=== PATIENT | female | born 1985 | race Caucasian/White ===

== ENCOUNTER 2016-08-04 10:14 | Emergency (ER) | payer OTHER ==
[2016-08-04 10:19] VITALS: RESP 16
--- NOTE | 2016-08-04 10:46 | EDPHY ---
H & P Time Seen by Provider: 08/04/16 10:31 HPI/ROS: CHIEF COMPLAINT: Sore throat HISTORY OF PRESENT ILLNESS: The patient is a 31 year old female presenting with sore throat for the past 3 days. Her throat feels swollen and moderately painful. Alleviated with ibuprofen. She has associated mild congestion. The patient has a history of peritonsillar abscess requiring hospitalization and is concerned she may have this again. She denies fever, cough, or difficulty breathing. REVIEW OF SYSTEMS: Aside from elements discussed in the HPI, a comprehensive 10-point review of systems was reviewed and is negative. Past Medical/Surgical History: Paratonsillar abscess, Bipolar disorder. PSH: Tonsillectomy Smoking Status: Never smoked Physical Exam: General Appearance: Alert, non-toxic Eyes: Pupils equal and round, no conjunctival injection ENT, Mouth: Mucous membranes moist. Throat: Pharyngeal erythema without exudate Neck: Normal inspection Respiratory: Lungs are clear to auscultation Cardiovascular: Regular rate and rhythm Neurological: A&O, nonfocal, normal gait Skin: Warm and dry, no rash Psychiatric: Mood and affect normal Constitutional: Initial Vital Signs Temperature (C) 36.7 C 08/04/16 10:17 Heart Rate 86 08/04/16 10:17 Respiratory Rate 16 08/04/16 10:17 Blood Pressure 114/72 08/04/16 10:17 O2 Sat (%) 94 08/04/16 10:17 O2 Delivery Mode Room Air Allergies/Adverse Reactions: No Known Allergies Allergy (Unverified 11/26/14 08:10) Home Medications: Medication Instructions Recorded Abilify 08/04/16 Lamictal 08/04/16 Penicillin V Potassium 500 mg PO TID #30 tablet 08/04/16 Ritalin 10mg (*) 08/04/16 Sertraline HCl 08/04/16 Medical Decision Making ED Course/Re-evaluation: rapid strep negative. Will rx with PCN, given h/o multiple strep throat and recent peritonsillar abscess. - Data Points Medications Given: Discontinued Medications Dexamethasone (Decadron) 4 mg PO EDNOW ONE Stop: 08/04/16 10:49 Last Admin: 08/04/16 10:54 Dose: 4 mg Departure - Departure Disposition: Home, Routine, Self-Care Clinical Impression: Pharyngitis Qualifiers: Qualifier Code: (J02.9) Acute pharyngitis, unspecified Condition: Good Instructions: Pharyngitis (ED) Additional Instructions: Take full course of antibiotics as prescribed. Take 600mg Ibuprofen every 6-8 hours as needed for pain. Return to the Emergency Department with new or worsening symptoms. Referrals: Osbaldo Sierra MD [Medical Doctor] - As per Instructions Prescriptions: Penicillin V Potassium 500 mg PO TID #30 tablet Report Scribed for: Lor White Report Scribed by: Nani Muñiz Date of Report: 08/04/16 Time of Report: 10:45 Physician Review and Approval Statement: 08/04/16 10:45 Portions of this note were transcribed by a medical billing supervisor. I personally performed the history, physical exam, and medical decision-making; and confirmed the accuracy of the information in the transcribed note.
[2016-08-04] MEDS ORDERED: DEXAMETHASONE 4 MG TAB PO ONE (10:48)
[2016-08-04 10:56] VITALS: BP 113/71; PULSE 71; TEMP 98.2; O2SAT 95
== END 2016-08-04 10:55 | disposition home or self-care (01) ==
DX: J02.9 Acute pharyngitis, unspecified (principal)